=== PATIENT | female | born 1935 | race Caucasian/White ===

== ENCOUNTER 2023-07-01 10:16 | Outpatient (OUT) | payer MEDICARE, BC, SELFPAY ==
--- NOTE | 2023-07-01 10:18 | VEIN_ITS ---
Patient: WILLAM ZARAGOZA Exam Date: 07/01/2023 : 1935 Gender:F Ordering : Non-Staff Physician Admission #: [id number] Family : Order #: [id number] CLICK HERE TO VIEW EXAM RADIOLOGY REPORT PROCEDURE: VC EXT VENOUS REFLUX SEB LMTD COMPARISON: None. INDICATIONS: I83.813 Painful varicose veins of bilat lower extremities TECHNIQUE: Duplex imaging of the lower extremity to assess the deep and superficial venous system for the presence of deep or superficial venous incompetence and to document the location and severity of disease. The study includes evaluation of the great saphenous vein (GSV), anterior accessory saphenous vein (AASV) and small saphenous vein (SSV). Patient scanned in reverse Trendelenburg and standing. FINDINGS: RIGHT LOWER EXTREMITY: Saphenofemoral Junction Reflux: Yes 10.9mm 2.4 sec GSV: Diam (mm) Reflux/ Time (sec) Proximal Thigh 6.5 Yes 1.5 Mid Thigh 4.1 No Distal Thigh 7.1 Yes 2.8 Prox Calf 5.3 Yes 1.7 Mid Calf 4.3 Yes 1.5 Saphenopopliteal Junction Reflux: 4.0mm Yes 0.6 SSV: Proximal Calf 3.4 No Mid Calf 5.7 Yes 0.8 AASV: Proximal Thigh 10.2 Yes 3.3 Mid Thigh 8.6 Yes 2.8 Distal Thigh Thrombi: No acute or chronic thrombus visualized Compressibility: Normal Flow: Normal Preforator: Dist/med calf 5.1mm with 0.5s reflux. Mid/med calf 5.6mm with 0.9s reflux. Tech Note: Incompetent SFJ, AASV, and GSV. Patent varicose vein dist/med calf 3.3mm with 1.0s reflux. Patent varicose vein medial knee 7.2mm with 2.4s reflux. Patent varicose vein dist/med thigh 5.1mm with 1.5s reflux. Patent varicose vein mid/ant thigh off of AASV 8.9mm with 2.8s reflux. Patent varicose vein mid/med thigh 6.8mm with 1.2 reflux. LEFT LOWER EXTREMITY: Saphenofemoral Junction Reflux: Yes 8.1 mm 2.2 sec GSV: Diam (mm) Reflux/Time (sec) Proximal Thigh 6.8 Yes 1.1 Mid Thigh 3.3 No Distal Thigh 6.9 Yes 1.0 Prox Calf 5.8 Yes 1.1 Mid Calf 4.5 Yes 1.2 Saphenopopliteal Junction Relux: 3.0 mm No SSV: Proximal Calf 1.5 N/A Mid Calf 1.2 N/A AASV: Proximal Thigh 5.7 Yes 2.5 Mid Thigh 5.1 Yes 1.0 Distal Thigh Thrombi: No acute or chronic thrombus visualized Compressibility: Normal Flow: Normal Technology Sales Representative: Dist/med calf 3.7mm with 0s reflux. Mid/med calf 4.6mm with 1.3s reflux. Tech Note: Incompetent SFJ, GSV, and AASV. Patent varicose vein dist/med thigh 3.5mm with 1.0s reflux. Patent varicose vein mid/med calf 4.1mm with 2.0s reflux. CONCLUSION: 1. Moderate right and mild left great saphenous vein venous insufficiency with dilatation and saphenofemoral junction reflux 2. Severe right and moderate left anterior accessory saphenous vein venous insufficiency with dilatation 3. Bilateral incompetent perforating veins 4. Bilateral incompetent dilated varicose veins Dictated by: Luis Manuel Mike MD on 07/01/2023 at 12:30 Approved by: Luis Manuel Mike MD on 07/01/2023 at 13:47
--- NOTE | 2023-07-01 10:18 | VEIN_ITS ---
Patient: WILLAM ZARAGOZA Exam Date: 07/01/2023 : 1935 Gender:F Ordering : Non-Staff Physician Admission #: [id number] Family : Order #: [id number] CLICK HERE TO VIEW EXAM RADIOLOGY REPORT PROCEDURE: FACILITY [facility] COMPREHENSIVE VEIN CENTER - OFFICE VISIT INITIAL COMPARISON: None. PROGRESS NOTES: 88-year-old female who presents with a 5-10 year history of lower extremity pain swelling discolored legs with varicose veins. The patient describes the pain as a 5 on a scale of 1-5 with aching burning dull and stinging pain. The patient's symptoms are exacerbated by sitting and standing and are partially relieved by rest, leg elevation, over the counter Tylenol and compression stockings which she has worn for approximately 3 years. The patient's symptoms do affect her daily quality of life and resulted in multiple poorly healing venous stasis ulcerations for which she is currently disease seen at the [facility] wound [facility]. The patient has had 4 separate wounds over the past several years each requiring months to heal with episodes of cellulitis. The patient denies any signs and symptoms to suggest arterial ischemia. The patient describes a family history significant for cancer in her father. Type 2 diabetes and a sibling. Hypertension kidney disease in her mother. . The patient has grandchildren into great grandchildren. Past medical history significant for depression, hyperlipidemia, hypertension and hypothyroidism. Prior such right foot surgery. The patient's several years ago. 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 The patient denies alcohol use. The patient has never smoked. No illicit drug use. No history of deep venous thrombus or pulmonary embolus. See separate history and physical for medication list. No prior treatment for varicose or spider veins. Nursing notes were reviewed. After history and physical exam I discussed at length the pathophysiology of venous hypertension and possible treatments, therapies and strategies available. We discussed at length the importance of elevating the lower extremities above the level of the heart, increased physical activity and compression stocking use. We discussed alternatives including conservative therapy with compression stockings, surgical treatments with ligation and stripping and phlebectomy. We discussed intravenous laser ablation, micro foam chemical ablation and injection sclerotherapy . Risks benefits alternatives were discussed at length Ultrasound venous reflux study performed the same day was discussed at length with the patient. The report demonstrates moderate right and mild left great saphenous vein venous insufficiency with dilatation and saphenofemoral junction reflux. Severe right and moderate left anterior accessory saphenous vein venous insufficiency with dilatation. Bilateral incompetent perforating veins several so she did with the patient's right leg ulcerations. Bilateral incompetent varicose veins PHYSICAL EXAM: The right leg demonstrates moderate diffuse varicose reticular and spider veins. 4 cm healing venous stasis ulceration identified along the distal anterior right lower leg. Multiple areas of healed venous stasis ulceration are identified. Extensive hemosiderin staining. Mild subcutaneous edema. The left leg demonstrates moderate diffuse varicose, reticular and spider veins. No active or healed venous stasis ulcerations. Extensive hemosiderin staining. Mild subcutaneous edema. Both thighs, legs and feet were symmetrically warm to the touch. Good posterior tibial and dorsalis pedis pulses were present bilaterally. VEIN/VC Facility EST Comprehensive IMPRESSION: 1. Moderate to severe right and mild to moderate left saphenous vein venous insufficiency as detailed above. Bilateral incompetent perforating veins some related to a right leg active ulceration 2. Bilateral lower extremity varicose veins 3. Mild lower extremity subcutaneous edema 4. No definite flow significant arterial disease 5. CEAP: C6, Ep, Asp, Pr PLAN: 1. Intravenous laser ablation right great saphenous vein followed by left great saphenous vein followed by right anterior accessory saphenous vein followed by left anterior accessory saphenous vein followed by right leg incompetent perforating veins associated with active venous stasis ulcerations 2. Bilateral micro foam chemical ablation of incompetent dilated varicose veins 3. Injection sclerotherapy of reticular and spider veins 4. Long-term use of bilateral 20-30 mm thigh or knee high compression stockings 5. Elevated legs and increased physical activity for symptomatic relief Nurse notes, history and physical were reviewed and confirmed, see attached forms. The nurse was present throughout the physical exam and consultation Dictated by: Luis Manuel Mike MD on 07/01/2023 at 15:35 Approved by: Luis Manuel Mike MD on 07/01/2023 at 15:41
== END 2023-07-01 10:17 | disposition home or self-care (01) ==
LOC: VC 10:17
PROVIDERS: PCP Physician Assistant
DX: R60.0 Localized edema (principal); I83.813 Varicose veins of bilateral lower extremities with pain
CPT/HCPCS: 93970; G0463

== ENCOUNTER 2023-07-02 12:34 | Outpatient (OUT) | payer MEDICARE, BC, SELFPAY ==
--- NOTE | 2023-07-02 12:36 | VEIN_ITS ---
[address] [address] Patient Name: WILLAM ZARAGOZA MRN: [id number] date: 1935 Sex: F Assigned Patient Location: Current Patient Location: Accession/Order Number: [id number] Exam Date: 07/02/2023 12:45 Report Date: 07/02/2023 14:29 At the request of: VANESSA WREN Procedure: VC Endovenous Ablation 1VeinRT EXAMINATION: VC Endovenous Ablation 1VeinRT HISTORY: Pain due to varicose veins of bilateral legs I83.813 The risks and benefits of the procedure had been previously discussed, and were rediscussed at length. Informed written consent was obtained. Eliel Ling RN and Aleksandra Cross RDMS, RVT assisted. Time out procedure was performed. The right lower extremity was prepared and draped in the usual sterile fashion to allow knee flexion in the sterile field. Duplex ultrasound probe was draped in a sterile cover, sterile transmission gel was used. Venous mapping was performed with the areas of dilation and large tributaries marked. The total length was 64 cm from the entry 3 cm above the ankle joint to 3 cm below the Saphenofemoral junction. The diameter of the right great saphenous vein ranged from 7.1 mm. A 30 gauge needle and 1% buffered lidocaine was used to anesthetize the entry site. A 4 mm incision was made with a scalpel and the saphenous vein was entered percutaneously under direct ultrasound guidance with a micropuncture set, a single stick was successful in gaining access. A micro-guide wire was inserted and the needle removed. A micro-set including a dilator was inserted over the microwire and the needle and dilator were removed. A guide wire was inserted through the micro-set and guided through the saphenous vein to the saphenofemoral junction. The dilator was removed and an introducer sheath was inserted over the wire until the end of the sheath entered the saphenofemoral junction. The dilator and wire were removed and the 600 micron fiber was introduced and placed and positioned so that it extended beyond the sheath and was 3 cm distal to the saphenofemoral or saphenopopliteal junction. Final position of the fiber was determined by ultrasound guidance and duplex imaging. Tumescent anesthetic was delivered by ultrasound guidance. 500 cc of fluid was delivered along the entire course of the saphenous vein. The solution consisted of 1000 cc of normal saline with 40 mL of 1% lidocaine and 20 mL of sodium bicarbonate. A final positioning check was made. The energy source was turned on by means of the foot pedal and the fiber and sheath were withdrawn. The total number of Joules delivered was 2959. The laser was active for 370 seconds under continuous pulse, average laser use of 8 J. Laser start time 2:05 PM, 07/02/2023. Laser stop time 2:17 PM, 07/02/2023. A duplex ultrasound revealed compressibility and flow at the saphenofemoral junction immediately after the procedure. Hemostasis at the access site was achieved. The skin incision of the saphenous vein was closed with a 4 x 4. A compression stocking was applied. Postop instructions were given. A follow up appointment was recommended and scheduled. The patient tolerated the procedure well. Electronically authenticated by: SANDRA CARDONA Date: 07/02/2023 14:29
[2023-07-02] MEDS: 0.9 % SODIUM CHLORIDE 500 ML, LIDOCAINE HCL 20 ML, SODIUM BICARBONATE 10 MEQ INJ (13:11)
[2023-07-02] MEDS: LIDOCAINE HCL 10 ML, SODIUM BICARBONATE 1 MEQ INJ (13:13)
== END 2023-07-02 12:35 | disposition home or self-care (01) ==
LOC: VC 12:34
PROVIDERS: PCP Physician Assistant; Visit Provider Radiology Diagnostic Radiology
DX: I83.813 Varicose veins of bilateral lower extremities with pain (principal)
CPT/HCPCS: 36478

== ENCOUNTER 2023-07-11 11:48 | Outpatient (OUT) | payer MEDICARE, BC, SELFPAY ==
--- NOTE | 2023-07-11 11:49 | VEIN_ITS ---
Patient: WILLAM ZARAGOZA Exam Date: 07/11/2023 : 1935 Gender:F Ordering : DR VANESSA WREN M.D. Admission #: [id number] Family : Order #: [id number] CLICK HERE TO VIEW EXAM RADIOLOGY REPORT PROCEDURE: VC EXT VENOUS RT LMTD COMPARISON: None. INDICATIONS: I80.01 Phlebitis of superficial veins of rt lower extremity TECHNIQUE: Lower extremity alex scale and Duplex Doppler evaluation of the deep venous system from the inguinal ligament through the calf veins. FINDINGS: REGION: Right lower extremity. THROMBI: Negative for DVT. Heat induced thrombus visualized 1.7s reflux from SFJ. The heat induced thrombus extends from groin to distal calf. COMPRESSIBILITY: Non-compressible segments. FLOW: Areas of no flow. OTHER: CONCLUSION: 1. Successful post ablation occlusion of right great saphenous vein. Dictated by: Tao Costa M.D. on 07/11/2023 at 12:00 Approved by: Tao Costa M.D. on 07/11/2023 at 12:27
--- NOTE | 2023-07-11 11:49 | VEIN_ITS ---
Patient: WILLAM ZARAGOZA Exam Date: 07/11/2023 : 1935 Gender:F Ordering : DR VANESSA WREN M.D. Admission #: [id number] Family : Order #: [id number] CLICK HERE TO VIEW EXAM RADIOLOGY REPORT PROCEDURE: FACILITY EST LMTD VEIN CENTER - OFFICE VISIT FOLLOW UP COMPARISON: None. PROGRESS NOTES: The patient reports improvement in leg symptoms. There has been interval reduction in varicosities. The patient has followed our recommendations to walk 20-30 minutes once or twice per day since the procedure. Physical exam demonstrates decrease in varicosities of the leg. Persistent varicosities and nonhealing wounds of distal lower extremity are identified along the right leg. Review of the ultrasound performed the same day demonstrates occlusive thrombus extending throughout the treated vein(s), see separate report, consistent with a successful ablation. No thrombus extending into or beyond the saphenofemoral junction. The patient described experiencing vertigo since the procedure. Patient expressed a desire to hold off on further treatment at this time since she is trying to get to the bottom of other new health issues. Patient will contact our office when/if she is ready to proceed with further vein treatment. I encouraged the patient to have her daughter, who helps with her care, give us a call so we can address any questions that she may have. VEIN/ Facility EST LMTD IMPRESSION: 1. Successful ablation of the right great saphenous vein(s). 2. Persistent abnormally dilated and incompetent veins and lower extremity wounds and symptoms. PLAN: Patient will contact our office when she is ready to continue with further treatment of the remaining abnormally dilated and incompetent superficial veins. Nurse notes, history and physical were reviewed and confirmed, see attached forms. The nurse was present throughout the physical exam and consultation Dictated by: Tao Costa M.D. on 07/11/2023 at 12:27 Approved by: Tao Costa M.D. on 07/11/2023 at 12:31
== END 2023-07-11 11:49 | disposition home or self-care (01) ==
LOC: VC 11:48
PROVIDERS: PCP Physician Assistant; Visit Provider Radiology Diagnostic Radiology
DX: I80.01 Phlebitis and thrombophlebitis of superficial vessels of right lower extremity (principal)
CPT/HCPCS: 93971; G0463